=== PATIENT | male | born 1970 | race Caucasian/White ===

== ENCOUNTER 2018-08-08 11:01 | Inpatient (IN) | payer OTHER ==
[~2018-08-08] VITALS: Ht 177.8 cm; Wt 59.9 kg
[~2018-08-08 11:01] MED LIST: AMOXICILLIN 50500 MG PO
[2018-08-08 11:20] VITALS: BP 159/121
[2018-08-08 11:47] LABS: ABSOLUTE NEUTROPHILS 5.7 thou/uL (1.4-8.2); BASOPHILS 0.3 % (0.0-2.0); HEMATOCRIT 49.3 % (42.0-52.0); HEMOGLOBIN 16.8 gm/dL (14.0-18.0); LYMPHOCYTES 8.2 % (24.0-44.0); MCH 35.3 pg (26.0-34.0); MCHC 34.2 g/dL (28.0-37.0); MCV 103.4 fL (80.0-100.0); MONOCYTES 11.8 % (1.0-8.0); PLATELET COUNT 154 thou/uL (150-400); POLYS 79.7 % (36.0-66.0); RBC 4.77 mil/uL (4.50-6.00); RDW 13.8 % (10.5-14.5); WBC 7.2 thou/uL (4.0-11.0)
[2018-08-08 12:13] LABS: CALCIUM 10.6 mg/dL (8.5-10.1); CREATININE 0.9 mg/dL (0.7-1.3); POTASSIUM 3.8 mmol/L (3.5-5.1)
[2018-08-08 12:18] LABS: ALBUMIN 4.4 g/dL (3.4-5.0); MAGNESIUM 1.5 mg/dL (1.8-2.4); PHOSPHORUS 2.8 mg/dL (2.5-4.9); TOTAL BILIRUBIN 2.1 mg/dL (<0.1-1.0); TOTAL PROTEIN 8.8 g/dL (6.4-8.2)
[2018-08-08 12:54] LABS: FOLIC ACID 3.6 ng/mL (8.6-58.9)
--- NOTE | 2018-08-08 13:26 | H ---
[facility] [place] [address] HISTORY AND PHYSICAL Name: HENRY ALEXANDRA Room #: 358-P [facility] IN M.R.#: [id number] Admission: 08/08/18 ������������������ Attend Phys: Ameya Burton MD Discharge: ������������������ Date of : 66 Report #: [id number] THIS REPORT FOR: //name// CC: Ameya Burton DATE OF SERVICE: 08/08/2018 CHIEF COMPLAINT: Nausea, vomiting, weakness and tremor. HISTORY OF PRESENT ILLNESS: The patient is a 47-year-old gentleman who was admitted from the office with a several day history of nausea and vomiting. He said last night he was unable to eat or drink anything and had a dull right-sided upper quadrant abdominal pain with vomiting symptoms began late in the evening and he reported some subjective fever as well. Overnight, the nausea has resolved, but he still has some right upper quadrant abdominal pain. He does report use of regular alcohol and says his last drink was on Monday afternoon. He does have a history of tobacco use. Also, he has got a history of about 15-pound weight loss over the last 1 year. Previous x-ray of the chest has been unremarkable and MRI of the lumbar spine revealed some degenerative disease and disk protrusion. He was also noted to have a left posterior rib fracture on x-ray in March of this year. PAST MEDICAL HISTORY: Tremor and hypertension. PAST SURGICAL HISTORY: None. FAMILY HISTORY: Noncontributory. SOCIAL HISTORY: He has a 24-myti-mnkm history of smoking and reports regular alcohol use. ALLERGIES: NAPROXEN. MEDICATIONS: None. REVIEW OF SYSTEMS: He complains of tremor, general weakness, loss of appetite, right upper quadrant abdominal pain. No fever, chills, chest pain, productive cough, shortness of breath, dysuria, myalgias, syncope or fall. OBJECTIVE: VITAL SIGNS: Per the nursing note. GENERAL: He is awake and alert, in no distress. HEAD AND NECK: Unremarkable. LUNGS: Clear. HEART: Regular. ABDOMEN: Soft, normoactive bowel sounds, tender and full in the right upper [facility] [address] [place] [address] HISTORY AND PHYSICAL Name: HENRY ALEXANDRA Room #: 358-P ADM IN M.R.#: [id number] Admission: 08/08/18 ������������������ Attend Phys: Ameya Burton MD Discharge: ������������������ Date of : 66 Report #: [id number] quadrant. EXTREMITIES: No cyanosis, clubbing or edema. NEUROLOGIC: He is alert and oriented x 4. He does have a tremor throughout. LABORATORY DATA: CBC is unremarkable other than MCV of 103. Electrolytes are stable. Bilirubin is 2.1, ALT, AST are 330 and 210 respectively. Alcohol level was negative. Lipase was 686. ASSESSMENT: 1. Alcohol withdrawal. 2. Hypertension due to the above. 3. Tremor related to the above. 4. Possible pancreatitis. 5. Weight loss. PLAN: He will be placed on the alcohol withdrawal protocol with IV fluids and medication support, atenolol for blood pressure and empiric Protonix. I have asked the GI and Neurology teams to assess him, but it is likely that his symptoms are related to alcohol use. ��������������������������������������������� <ELECTRONICALLY SIGNED> ���������������������������������������� By: Ameya Burton MD ��������������������������������������������� 08/08/18 1326 [id number] Ameya Burton MD /nt
[2018-08-08 16:02] VITALS: BP 150/109
[2018-08-08 17:06] LABS: URINE BLOOD 1+ (Negative); URINE CLARITY CLEAR; URINE COLOR YELLOW; URINE GLUCOSE-RANDOM* NEGATIVE (Negative); URINE KETONES 3+ (Negative); URINE LEUKOCYTES-REFLEX NEGATIVE (Negative); URINE NITRITE-REFLEX NEGATIVE (Negative); URINE PROTEIN (DIPSTICK) 2+ (Negative); URINE SPECIFIC GRAVITY <= 1.005 (1.005-1.035)
[2018-08-08 17:10] LABS: ICTOTEST (BILI CONFIRMATORY) Negative (Negative); URINE BILIRUBIN NEGATIVE (Negative)
[2018-08-08 17:15] LABS: AMP/METHAMP Negative (Negative); BARBITURATES Negative (Negative); BENZODIAZEPINES Negative (Negative); COCAINE Negative (Negative); METHADONE Negative (Negative); OPIATES Negative (Negative); PCP Negative (Negative)
[2018-08-08 17:24] LABS: BACTERIA-REFLEX 1-9 Few /HPF (None Seen); CASTS None Seen /LPF (None Seen); CRYSTALS None Seen /LPF (None Seen); SQUAMOUS None Seen /LPF (0-3); URINE RBC None Seen /HPF (0-2); URINE WBC-REFLEX None Seen /HPF (0-5)
[2018-08-08 19:07] VITALS: BP 149/105
[2018-08-08 23:27] VITALS: BP 172/102
[2018-08-09 03:18] VITALS: BP 165/102
[2018-08-09 05:43] LABS: PROTIME 10.3 Seconds (9.3-11.4)
[2018-08-09 07:26] VITALS: BP 138/102
[2018-08-09 09:06] LABS: HAV IgM AB (ANTI-HAV IgM) Negative (Negative); HEPATITIS B SURFACE AG Negative (Negative); HEPATITIS C VIRUS AB <0.1 (0.0-0.9)
[2018-08-09 10:08] VITALS: BP 138/102
[2018-08-09 12:45] VITALS: BP 151/111
[2018-08-09 16:11] VITALS: BP 146/94
[2018-08-09 19:45] VITALS: BP 148/91
[2018-08-10 04:00] VITALS: BP 145/98
[2018-08-10 05:32] LABS: CREATININE 0.5 mg/dL (0.7-1.3); MAGNESIUM 1.5 mg/dL (1.8-2.4); PHOSPHORUS 2.8 mg/dL (2.5-4.9); POTASSIUM 3.4 mmol/L (3.5-5.1); TOTAL BILIRUBIN 1.3 mg/dL (<0.1-1.0); TOTAL PROTEIN 5.4 g/dL (6.4-8.2)
[2018-08-10 05:33] LABS: CALCIUM 8.3 mg/dL (8.5-10.1)
[2018-08-10 07:34] VITALS: BP 148/102
[2018-08-10] MEDS ORDERED: PROPRANOLOL 1010 MG PO (13:26)
[2018-08-10] MEDS ORDERED: VITAMIN B-1100 M2 PO (13:27)
[2018-08-10] MEDS ORDERED: NORVASC10 MG PO (13:27)
--- NOTE | 2018-08-10 14:06 | HC ---
[facility] [place] [address] CONSULTATION Name: HENRY ALEXANDRA Room #: 352-P [facility] IN M.R.#: [id number] Admission: 08/08/18 ������������������ Attend Phys: Ameya Burton MD Discharge: ������������������ Date of : 66 Report #: [id number] THIS REPORT FOR: //name// CC: Ameya Burton DATE OF SERVICE: 08/08/2018 HISTORY OF PRESENT ILLNESS: This is a 47-year-old male patient who was evaluated by me for essential tremor. This patient has a longstanding tremor. It becomes better with alcohol. Sometime it will stay controlled with alcohol for several hours. His grandfather on the father's side had a similar tremor. He does not have any other symptoms of Parkinson disease. It significantly interfered with his daily activity. REVIEW OF SYSTEMS: Indicate 14-point review of system was carried out. He is being evaluated for weight loss. He has abnormal liver function. He has alcohol dependency and a possible pancreatitis. He is being seen by GI in that regard. He did have a TSH, which was unremarkable. He did not have any imaging studies of the brain. 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 This was his relevant 14-point review of systems. PAST MEDICAL HISTORY: Positive for tremor. FAMILY HISTORY: Positive for tremor. SOCIAL HISTORY: He smokes as well as drink alcohol. PHYSICAL EXAMINATION: Indicate that he is alert, responsive. He is able to follow simple and complex command. His cranial nerve examination 2-12 looks unremarkable. He has a severe essential tremor. His position sense is intact. His reflexes are symmetrical. There is no meningeal sign. There is no carotid bruit. Cardiac examination is unremarkable. No edema or cyanosis was noticed. His blood pressure is 150/109, respiration is 24, pulse is 86, temperature is 98.9. LABORATORY DATA: His white count is 7.2. His sodium is 135. His calcium is 10.6. I did not have any imaging study of the brain. IMPRESSION: The patient's clinical presentation looks pretty classical for essential tremor. It is severe and interfering with his daily activity. Initially, I think we should convert his atenolol to Inderal on equivalent doses and see if it helps. Inderal is supposed to have better blood brain penetration and we will see how much effective that is. I discussed with them that nothing is going to completely abolishes tremor and will be to decrease it about 25 to 50% with the medication. If Inderal is ineffective, we can try primidone, but [facility] [address] [place] [address] CONSULTATION Name: HENRY ALEXANDRA Room #: 352-P [facility] IN [facility]#: [id number] Admission: 08/08/18 ������������������ Attend Phys: Ameya Burton MD Discharge: ������������������ Date of : 66 Report #: [id number] primidone has a side effect. We did talk about surgery in this patient, that can be done, but only as a last resort. I would like to get an MRI done sometime, but let him to stabilize before ordering that. Thank you very much for this referral. ��������������������������������������������� <ELECTRONICALLY SIGNED> ���������������������������������������� By: Evan Evans MD ��������������������������������������������� 08/10/18 1406 [id number] [id number] Evan Evans MD /nt
[2018-08-10 15:49] VITALS: BP 140/91
[2018-08-10 19:16] VITALS: BP 131/89
[2018-08-11 03:37] VITALS: BP 130/95
[2018-08-11 07:29] VITALS: BP 142/95
[2018-08-11 13:09] VITALS: BP 128/82
== END 2018-08-11 14:06 | disposition home or self-care (01) | DRG 432 ==
LOC: 3W 11:01
PROVIDERS: Internal Medicine Gastroenterology; ADMIT Internal Medicine Geriatric Medicine
DX: K70.10 Alcoholic hepatitis without ascites (principal); E43 Unspecified severe protein-calorie malnutrition; Z68.1 Body mass index [BMI] 19.9 or less, adult; G25.0 Essential tremor; K08.409 Partial loss of teeth, unspecified cause, unspecified class; F10.10 Alcohol abuse, uncomplicated; K21.9 Gastro-esophageal reflux disease without esophagitis; K59.00 Constipation, unspecified; I10 Essential (primary) hypertension; Z87.891 Personal history of nicotine dependence; Z79.899 Other long term (current) drug therapy; Z88.8 Allergy status to other drugs, medicaments and biological substances
CPT/HCPCS: 10879